=== PATIENT | male | born 1970 | race Caucasian/White ===

== ENCOUNTER 2023-03-12 10:58 | Outpatient (CLI) | payer BC, SELFPAY ==
[2023-03-12 13:08] LABS: Chloride* 104 mmol/L (96-114); Potassium* 4.1 mmol/L (3.6-5.1); Sodium* 141 mmol/L (135-149)
[2023-03-12 13:11] LABS: Blood Urea Nitrogen* 9 mg/dL (7-30); Calcium* 9.7 mg/dL (8.4-10.6); Carbon Dioxide* 28 mmol/L (20-32); Creatinine* 0.9 mg/dL (0.5-1.5); Estimated Glomerular Filt Rate 104 ml/min; Glucose* 150 mg/dL (60-115)
[2023-03-12 13:16] LABS: Basophils Absolute Auto 0.04 K/uL (0.00-0.30); Basophils Percent Auto 0.6 % (0.0-3.0); Eosinophils Percent Auto 1.5 % (0.0-7.0); Hematocrit 49.8 % (37.0-53.0); Immature Granulocytes Abs Auto 0.01 K/uL (0.00-0.30); Immature Granulocytes Pct Auto 0.1 %; Lymphocytes Percent Auto 28.5 % (20-44); Mean Corpuscular HGB Conc 32 gm/dL (32-36); Mean Corpuscular Hemoglobin 33 pg (26-34); Mean Corpuscular Volume 103 fL (80-100); Monocytes Percent Auto 10.3 % (0.0-11.0); Neutrophils Absolute Auto 3.93 K/uL (1.7-7.0); Platelet Count* 304 K/uL (140-440); RDW Coefficient of Variation % 13.5 % (11.5-15.5); Red Blood Count 4.86 m/uL (4.30-5.90); White Blood Count* 6.67 K/uL (4.50-11.00)
[2023-03-12 13:18] LABS: Slide Review Reflex No
[2023-03-12 13:40] LABS: PSA Screen* 1.38 ng/mL (0.10-4.00)
== END 2023-03-12 10:59 | disposition home or self-care (01) ==
PROVIDERS: PCP Family Medicine; Visit Provider Family Medicine
DX: R63.4 Abnormal weight loss (principal); R73.03 Prediabetes; Z12.5 Encounter for screening for malignant neoplasm of prostate
CPT/HCPCS: 80048; 84153; 84443; 85025

== ENCOUNTER 2024-11-22 10:30 | Outpatient (CLI) | payer BC, SELFPAY | END 2024-11-22 10:31 | disposition home or self-care (01) | LOC: NFLDREF 11-23 02:09 | PROVIDERS: PCP Family Medicine; Referring Provider Family Medicine; Visit Provider Family Medicine | DX: Z01.818 Encounter for other preprocedural examination (principal) | CPT/HCPCS: 85025 ==

== ENCOUNTER 2024-11-30 10:18 | Day surgery (SDC) | payer BC, SELFPAY ==
[2024-11-30] VITALS (11 sets, daily range): BP systolic 127–159; BP diastolic 72–104; PULSE 57–73; RESP 14–16; TEMP 36.3–36.8; O2SAT 72–100; BMI 23.0
--- OUTSIDE RECORDS SUMMARY | 2024-11-30 10:20 | XMS_ITS | Clinical Summary ---
Author Organization [facility] Address [place], [place] [address] Care Team Providers Care Traffic Control Specialist Name Role Phone Tye Gonzalez MD Primary Care Provider + Allergies No known active allergies Medications benzonatate (TESSALON) 100 mg capsuleIndicati ons:Acute cough Take 1 Capsule (100 mg) by mouth 3 times daily if needed for Cough. 15 Capsule 10/07/2024 Active azithromycin (ZITHROMAX) 250 mg tablet 10/06/2024 Active Active Problems Problem Noted Date Diagnosed Date Swelling, mass, or lump in chest 08/16/2014 Tobacco use disorder 10/31/2007 Testicular cancer 10/31/2007 Encounters Date Type Department Care Team Description 11/30/2024 9:50 AM WASH TUB MACHINE OPERATOR - 11/30/2024 12:45 PM [facility] Surgery [facility] [address] [place] [address] Jose Valladares MD ROBOTIC LEFT INGUINAL HERNIA REPAIR 11/30/2024 9:50 AM [facility] Hospital Encounter [facility] [address] [place] [address] Jose Valladares MD 11/11/2024 Telephone [facility] [address] [place] [phone] David Pennington MD Results 11/09/2024 Telephone [facility] [address] [place] [address] Jose Valladares MD Other 11/09/2024 Orders Only [address] [phone] David Pennington MD 1 scan: (1-Ord) 11/08/2024 11/08/2024 4:20 PM WASH TUB MACHINE OPERATOR Preop Visit [address] [phone] David Pennington MD Preoperative Exam (Surgery on 11/30/24 Dr Bob Valladares ) 11/08/2024 Travel 10/28/[address] [phone] Jose Valladares MD Need to reschedule surgery date 10/08/2024 10:00 AM WASH TUB MACHINE OPERATOR Office Visit [address] [phone] Jose Valladares MD Consult (abdominal hernia) 10/07/2024 1:46 PM WASH TUB MACHINE OPERATOR - 10/07/2024 2:53 PM WASH TUB MACHINE OPERATOR Emergency [facility] [address] [place] [address] Micheal Flores PA Non-recurrent abdominal hernia without obstruction or gangrene, unspecified hernia type (Primary Dx); Acute cough Discharge Disposition: Home Self Care 10/07/2024 Travel from Last 3 Months Immunizations Name Administration Dates Next Due Influenza, IIV3 (Age >=3 years) 07/27/2014,07/27,07/28/2012,07/30/2011 Tdap 09/13/2012 Family History Relation Name Status Comments Brother Alive x1 Father Alive Maternal Grandfather Maternal Grandmother Alive Mother Alive Paternal Grandfather Paternal Grandmother Alive Sister Alive x2 Social History Tobacco Use Types Packs/Day Years Used Date Smoking Tobacco: Light Smoker Cigarettes 0.3 8 Started: 006; Last attempted to quit: 07/05/2014 Passive Smoke Exposure: Current Smokeless Tobacco: Former Quit: 11/13/2016 Tobacco Cessation:Ready to Q uit: Not Asked; Counseling Given: Not Answered Comments:1 pack per week Alcohol Use Standard Drinks/Week Comments Yes 24 (1 standard drink = 0.6 oz pu re alcohol) Weekly PHQ-2 Answer Date Recorded PHQ-2 Score 0 02/17/2019 Interpersonal Safety Answer Date Record ed Are you being hit, kicked, p ushed or yelled at (see row info)? 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 Not on file Not on file Not on file Obstetrics History Last Filed Vital Signs Vital Sign Reading Time Taken Comments Blood Pressure 116/58 11/08/2024 4:31 PM WASH TUB MACHINE OPERATOR Pulse 56 11/08/2024 4:31 PM WASH TUB MACHINE OPERATOR Temperature 36.9 C (98.5 F) 10/07/2024 1:55 PM WASH TUB MACHINE OPERATOR Respiratory Rate 20 11/08/2024 4:31 PM WASH TUB MACHINE OPERATOR Oxygen Saturation 100% 10/08/2024 9:49 AM WASH TUB MACHINE OPERATOR Inhaled Oxygen Concentration - - Weight 75.8 kg (167 lb) 11/08/2024 4:31 PM WASH TUB MACHINE OPERATOR Height 182.9 cm (6') 11/08/2024 4:31 PM WASH TUB MACHINE OPERATOR Body Mass Index 22.65 11/08/2024 4:31 PM WASH TUB MACHINE OPERATOR Plan of Treatment Scheduled Procedures Name Priority Associated Diagnoses Date/Ti me ROBOTIC ASSISTED INGUINAL HERNIA REPAIR XI Non-recurrent unilateral inguinal hernia without obstruction or gangrene 11/30/2024 10:00 AM WASH TUB MACHINE OPERATOR Health Maintenance Due Date Last Done Comments HIV for age 15-65 1987 Hepatitis C screening for ag e 18-79 1990 Pneumococcal series for age 50+ (1 of 2 - PCV) 1991 Colonoscopy through age 75 2017 Depression screening for age 12+ 02/18/2020 02/18/20 19, 04/22/2017 Zoster (shingles) series for age 50+ (1 of 2) 2022 Tetanus booster 09/13/2022 09/13/2012 Lipids for age 45-75 02/18/2024 02/17/2019, 12/29/2017, 12/25/2016 COVID-19 vaccine series ( season) 2024 03/02/2021, 02/02/2021 Influenza for age 50-64 07/18/2024 07/27/20 14, 07/27/2013, 07/28/2012, Additional history exists BMI (ht and wt on same day) for age 18+ 11/08/2025 11/08/2024, 02/17/2019, 12/29/2017, Additional history exists Tdap Completed 09/13/2012 Procedures Procedure Name Priority Date/Time Associated Diagnosis Comments BASIC METABOLIC PANEL Routine 11/08/2024 5:25 PM WASH TUB MACHINE OPERATOR Pre-op exam CBC W PLT NO DIFF Routine 11/08/2024 5:2 5 PM WASH TUB MACHINE OPERATOR Pre-op exam HEPATIC FUNCTION PANEL Routine 11/08/2024 5:25 PM WASH TUB MACHINE OPERATOR Inguinal hernia, left EKG 12 LEAD Routine 11/08/2024 12:00 AM WASH TUB MACHINE OPERATOR Pre-op exam LIPID PANEL W REFLEX MEASURED LDL Routine 02/17/2019 10:03 AM CDT Screening for lipid disorders from Last 3 Months or Most Recently Relevant to Health Maintenance Results * (ABNORMAL) CBC W PLT NO DIFF (11/08/2024 5:25 PM WASH TUB MACHINE OPERATOR) WHITE BLOOD CELL COUNT 11.5(H) 3.8 - 10.8 Thousand/u L [facility] RED BLOOD CELL COUNT 4.76 4.20 - 5.80 Million/uL [facility] HEMOGLOBIN 15.3 13.2 - 17.1 g/dL [facility] HEMATOCRIT 46.3 38.5 - 50.0 % [facility] MCV 97.3 80.0 - 100.0 fL [facility] MCH 32.1 27.0 - 33.0 pg [facility] MCHC 33.0 32.0 - 36.0 g/dL [facility] Comment: For adults, a slight decrease in the calculated MCHC value (in the range of 30 to 32 g/dL) is most likely not clinically significant; however, it should be interpreted with caution in correlation with other red cell parameters and the patient's clinical condition. RDW 11.9 11.0 - 15.0 % [facility] PLATELET COUNT 336 140 - 400 Thousand/u L [facility] MPV 9.7 7.5 - 12.5 fL [facility] Blood BLOOD SPECIMEN / Unknown 11/08/2024 5:25 PM WASH TUB MACHINE OPERATOR 11/08/2024 5:27 PM WASH TUB MACHINE OPERATOR Narrative [facility] - 11/09/2024 3:10 AM WASH TUB MACHINE OPERATOR FASTING:NO FASTING: NO us David Pennington MD HEMATOLOGY Final R esult [place] [facility] [address] [place] [address], [employer] [facility] Hospital[facility] [address] [place] [phone] * HEPATIC FUNCTION PANEL (11/08/2024 5:25 PM WASH TUB MACHINE OPERATOR) PROTEIN, TOTAL 7.6 6.1 - 8.1 g/dL [facility] ALBUMIN 4.9 3.6 - 5.1 g/dL [facility] GLOBULIN 2.7 1.9 - 3.7 g/dL (calc) [facility] ALBUMIN/GLOBULIN RATIO 1.8 1.0 - 2.5 (calc) [facility] BILIRUBIN, TOTAL 0.4 0.2 - 1.2 mg/dL [facility] BILIRUBIN, DIRECT 0.1 < OR = 0.2 mg/dL [facility] BILIRUBIN, INDIRECT 0.3 0.2 - 1.2 mg/dL (calc) [facility] ALKALINE PHOSPHATASE 97 35 - 144 U/L [facility] AST 16 10 - 35 U/L [facility] ALT 12 9 - 46 U/L [facility] Blood BLOOD SPECIMEN / Unknown 11/08/2024 5:25 PM WASH TUB MACHINE OPERATOR 11/08/2024 5:27 PM WASH TUB MACHINE OPERATOR Narrative [facility] - 11/09/2024 4:51 AM WASH TUB MACHINE OPERATOR FASTING:NO FASTING: NO David Pennington MD CHEMISTRY Final R esult [place] [facility] [address] [place] [address], [employer] [facility] [address] [place] [address] * BASIC METABOLIC PANEL (11/08/2024 5:25 PM WASH TUB MACHINE OPERATOR) Pathologist [facility] GLUCOSE 131 65 - 139 mg/dL [facility] Comment: Non-fasting reference interval UREA NITROGEN (BUN) 11 7 - 25 mg/dL [facility] CREATININE 0.86 0.70 - 1.30 mg/dL [facility] EGFR 104 > OR = 60 mL/min/1. 73m2 [facility] BUN/CREATININE RATIO SEE NOTE: 6 - 22 (calc) [facility] Comment: Not Reported: BUN and Creatinine are within reference range. SODIUM 141 135 - 146 mmol/L [facility] POTASSIUM 4.4 3.5 - 5.3 mmol/L [facility] CHLORIDE 101 98 - 110 mmol/L [facility] CARBON DIOXIDE 31 20 - 32 mmol/L [facility] ELECTROLYTE BALANCE 9 7 - 17 mmol/L (calc) [facility] CALCIUM 10.0 8.6 - 10.3 mg/dL [facility] Blood BLOOD SPECIMEN / Unknown 11/08/2024 5:25 PM WASH TUB MACHINE OPERATOR 11/08/2024 5:27 PM WASH TUB MACHINE OPERATOR Narrative [facility] - 11/09/2024 4:51 AM WASH TUB MACHINE OPERATOR FASTING:NO FASTING: NO David Pennington MD CHEMISTRY Final R esult [facility] [address] [place] [address], [place] [phone] [facility] [address] [place] [address] * EKG 12 LEAD (11/08/2024 12:00 AM WASH TUB MACHINE OPERATOR) David Pennington MD EKG ORD Final R esult * (ABNORMAL) LIPID PANEL W REFLEX MEASURED LDL (02/17/2019 10:03 AM CDT) CHOLESTEROL,TOTAL 204(H) 100 - 199 mg/dL 02/17/2019 11:02 AM CDT [facility] TRIGLYCERIDES 144 <150 mg/dL 02/17/2019 11:02 AM CDT [facility] HDL CHOLESTEROL 40(L) >40 mg/dL 9 11:02 AM CDT [facility] NON-HDL CHOLESTEROL 164(H) <145 mg/dl 02/17/2019 11:02 AM CDT [facility] CHOL/HDL RATIO 5.10(H) <4.50 02/17/2019 11:02 AM CDT [facility] LDL CHOLESTEROL 135(H) <=130 mg/dL 02/17/2019 11:02 AM CDT [facility] PROVIDER ORDERED STATUS RANDOM 02/17/2019 11:02 AM CDT [facility] Blood BLOOD SPECIMEN / Unknown Venipuncture / Unknown 02/17/2019 10:03 AM CDT 02/17/2019 10:03 AM CDT Macho Sheldon MD CHEMISTRY Final Result [place] [address] [place] [address] from Last 3 Months or Most Recently Relevant to Health Maintenance Insurance [facility] [place] [address] Advance Directives * Full Code (Latest Code Status on File) Date Activated Date Inactivated Comments 05/12/2008 11:42 AM 05/16/2008 4:13 PM Care Teams Traffic Control Specialist Relationship Specialty Start Date End Date Tye Gonzalez MD [address] [place] [address] PCP - General 03/01/21
[2024-11-30] MEDS: 0.9 % SODIUM CHLORIDE 500 ML 500 ML 100 ML IV (11:05)
--- NOTE | 2024-11-30 11:09 | W.PM.H&PU ---
History & Physical Update History & Physical Update H&P Reviewed and patient assessed: No changes noted
[2024-11-30] MEDS: CEFAZOLIN 2 GM INJ IVP (11:15)
[2024-11-30] MEDS: BUPIVACAINE 0.25% 30 ML INJECTION (12:25)
--- NOTE | 2024-11-30 12:33 | P.GSOP_ITS ---
Operative Note Date of procedure: 11/30/24 Pre-op diagnosis: Left inguinal hernia Post-op diagnosis: Large indirect inguinal hernia, small direct inguinal hernia-left Type of Procedure: Open left inguinal hernia repair with placement of mesh Indications: Patient is a 54-year-old male who presented to clinic with a symptomatic left inguinal hernia. Please see consultation note for full discussion regarding different treatment options. Risks and benefits of operative intervention were discussed at length with the patient. Risks included but was not limited to: Bleeding, infection, risk of damage to surrounding structures, possible need for additional procedures, risk of recurrence and postoperative complications such as pneumonia, pulmonary emboli or IN. All questions and concerns were addressed with the patient agreeing to proceed. Procedure Description: After discussing the risks and benefits of the procedure, the patient signed informed consent.? The operative site was marked and the patient was brought to the operating room and placed on the operating table in supine position.? Care was taken to pad the patient's pressure points.?? The patient was then intubated by anesthesia.?? The operative site was then prepped and draped in the usual sterile fashion.? A time-out was then performed. Local anesthetic was injected into the skin and subcutaneous tissue overlying the inguinal canal. An elliptical incision would was made around an atypical mole, which was directly in the operative field. The skin lesion was then passed off to be sent for pathology. It was marked with a single stitch superior and double stitch lateral. Dissection was carried down into the subcutaneous tissue using cautery until the external oblique fascia was encountered. This was cleared off. The external ring was identified and after injection of more local anesthetic, the external oblique was incised using a knife. This was extended using the Metzenbaum scissors with care to dissect the underlying cord structures away before cutting. The cord was cleared from the inside of the inguinal canal and looped with a Bevier drain. A large indirect inguinal hernia was identified. The hernia sac was then dissected off of the cord structures. This was opened to ensure no intra-a bdominal contents were present. The hernia sac was then ligated proximally and reduced into the abdomen. A large cord lipoma was removed from the cord structures. The floor of the inguinal canal was cleared off, with evidence of a small direct hernia. A piece of polypropylene mesh was obtained and cut to size. This was secured to the pubic tubercle using to 2-0 Prolene and a double- arm suture. The Prolene was run along the inguinal ligament and superiorly along the transversalis fascia securing the tails behind the cord and recreating the internal ring. The wound was examined for hemostasis, which was excellent. The external oblique fascia was then reapproximated with absorbable suture. The wound was then closed in layers including Ketan's fascia and the dermis with the cervical suture. The skin was then closed with a running subcuticular suture. Sterile dressings were applied. Instrument sponge and needle counts were correct at the end of the case. The patient was woken and taken to the PACU in stable condition. Findings: Large left indirect hernia, small direct hernia. Atypical mole within the operative field, excised and sent to pathology. Anesthesia: GETA Surgeon: Eri Russell MD Estimated blood loss (mL): 5 Additional Specimen Information: Left groin skin lesion Condition: stable Disposition: PACU
--- NOTE | 2024-11-30 12:38 | P.ANES_ITS ---
Anesthesia Charges Start Date/Time Anesthesia Start Date: 11/30/24 Anesthesia Start Time: 11:05 Stop Date/Time Anesthesia Stop Date: 11/30/24 Anesthesia Stop Time: 12:45 Coding CPT Codes CPT Codes: ANESTH REPAIR OF HERNIA - 26246 ([id number]) QK - GLASS CURVATURE GAUGER 2-4 CNCRNT ANES PROC, QX - DRY GOODS INSPECTOR SVC W/ MD MED DIRECTION, P2 - PATIENT W/MILD SYST DISEASE
--- NOTE | 2024-11-30 12:38 | W.ANESCHARGE ---
Anesthesia Charges Start Date/Time Anesthesia Start Date: 11/30/24 Anesthesia Start Time: 11:05 Stop Date/Time Anesthesia Stop Date: 11/30/24 Anesthesia Stop Time: 12:45 Coding CPT Codes CPT Codes: ANESTH REPAIR OF HERNIA - 60896 ([id number]) QK - ANIMAL BEHAVIORIST 2-4 CNCRNT ANES PROC, QX - LAST WAXER SVC W/ MD MED DIRECTION, P2 - PATIENT W/MILD SYST DISEASE
--- NOTE | 2024-11-30 12:44 | P.ANES_ITS ---
Anesthesia Charges Start Date/Time Anesthesia Start Date: 11/30/24 Anesthesia Start Time: 11:05 Stop Date/Time Anesthesia Stop Date: 11/30/24 Anesthesia Stop Time: 12:45 Coding CPT Codes CPT Codes: ANESTH SURGERY OF ABDOMEN - 76213 ([id number]) P2 - PATIENT W/MILD SYST DISEASE, QK - SOLAR MAINTENANCE TECHNICIAN 2-4 CNCRNT ANES PROC, QX - FINISH INSPECTOR SVC W/ MD MED DIRECTION
--- NOTE | 2024-11-30 12:44 | W.ANESCHARGE ---
Anesthesia Charges Start Date/Time Anesthesia Start Date: 11/30/24 Anesthesia Start Time: 11:05 Stop Date/Time Anesthesia Stop Date: 11/30/24 Anesthesia Stop Time: 12:45 Coding CPT Codes CPT Codes: ANESTH SURGERY OF ABDOMEN - 26488 ([id number]) P2 - PATIENT W/MILD SYST DISEASE, QK - DATA ENTRY EMAIL PROCESSOR 2-4 CNCRNT ANES PROC, QX - CROP CONSULTANT SVC W/ MD MED DIRECTION
[2024-11-30] MEDS: fentaNYL 100 MCG/2 ML inj 50 MCG IVP (12:59)
[2024-11-30] MEDS: HYDROmorphone 0.5 mg/0.5 ml inj IVP (13:04)
[2024-11-30] MEDS: HYDROCODONE-ACETAMIN 5-325 MG 1 TAB PO (13:30)
--- NOTE | 2024-11-30 14:00 | SUR.PHASEII ---
pt states he is ready to go home. VSS. pain tolerable 03/26. Dressing c/d/i, ambulated with RN to car with his flatbed company driver.
== END 2024-11-30 14:00 | disposition home or self-care (01) ==
PROVIDERS: PCP Family Medicine; Visit Provider Surgery
PROC: (CPT 49505; principal; 2024-11-30 11:45)
DX: K40.90 Unilateral inguinal hernia, without obstruction or gangrene, not specified as recurrent (principal)
CPT/HCPCS: 49505; 00830; 00860; 88305; A9270; C1781; J0330; J0665; J0690; J1100; J1171; J1885; J2250; J2405; J2704; J2710; J3010; J7030